=== PATIENT | male | born 1950 | race Caucasian/White ===

== ENCOUNTER 2017-08-05 12:10 | Observation (INO) ==
[2017-08-05] MEDS ORDERED: NITROGLYCERIN 2% OINT 1 INCH/GM PACK TOP STA (12:44)
[2017-08-05] MEDS ORDERED: ENOXAPARIN 100 MG/ML SYRINGE SUBCUT STA (12:44)
[2017-08-05] MEDS ORDERED: MORPHINE 2 MG/1 ML SYRINGE IV STA (12:44)
[2017-08-05] MEDS ORDERED: ASPIRIN 325 MG TABLET PO STA (12:44)
[2017-08-05] MEDS ORDERED: ONDANSETRON 4 MG/2 ML VIAL IV STA (12:44)
[2017-08-05] MEDS ORDERED: NITROGLYCERIN SL 0.4 MG TABLET SL PRN (12:44)
[2017-08-05 13:46] LABS: Basophils % 0.3 % (0.0-0.8); Eosinophils % 0.2 % (0.00-10.9); Hematocrit 42.1 VOL% (42.0-52.0); Hemoglobin 14.2 GM/DL (14.0-18.0); Immature Granulocytes % 1.2 %; Immature Granulocytes Absolute 0.12 #; Lymphocytes # 1.4 10*3/uL (1.4-4.0); Lymphocytes % 13.3 % (21.2-54.2); Mean Corpuscular HGB Conc 33.7 GM/DL (32-36); Mean Corpuscular Hemoglobin 30 PG (27-34); Mean Corpuscular Volume 88.6 FL (87-102); Mean Platelet Volume 10.5 FL (9.6-12.0); Monocytes # 0.6 10*3/uL (0.11-0.8); Monocytes % 6.2 % (1.7-12.7); Neutrophils # 8.2 10*3/uL (1.4-7.4); Neutrophils % 78.8 % (38.7-73.9); Platelet Count 295 T/CUMM (130-400); Red Blood Count 4.75 MC/CUMM (3.8-5.5); Red Cell Distribution Width 13.9 % (9.3-17.3); White Blood Count 10.4 T/CUMM (4-12)
[2017-08-05 14:01] LABS: Alanine Aminotransferase 28 U/L (16-61); Albumin 3.7 G/DL (3.4-5.0); Alkaline Phosphatase 59 U/L (45-117); Aspartate Amino Transferase 16 U/L (0-37); Bilirubin,Total < 0.39 MG/DL (0.2-1.0); Blood Urea Nitrogen 26 MG/DL (7-18); Calcium 9.4 MG/DL (8.5-10.1); Glucose 106 MG/DL (74-106); Osmolality,Calculated 281.5 MOS/KG (273-304); Sodium 139 MMOL/L (136-145); Total Protein 7.1 G/DL (6.4-8.3); Troponin I Only 0.038 NG/ML (0.00-0.045)
[2017-08-05] MEDS ORDERED: NITROGLYCERIN 2% OINT 1 INCH/GM PACK TOP ONE (14:04)
[2017-08-05] MEDS ORDERED: ENOXAPARIN 100 MG/ML SYRINGE SUBCUT ONE (14:04)
[2017-08-05] MEDS ORDERED: ONDANSETRON 4 MG/2 ML VIAL ONE (14:04)
[2017-08-05] MEDS ORDERED: MORPHINE 2 MG/1 ML SYRINGE ONE (14:05)
[2017-08-05] MEDS ORDERED: ASPIRIN 325 MG TABLET ONE (14:05)
[2017-08-05] MEDS ORDERED: guaiFENesin/DM ER 600-30 MG TABLET PO PRN (15:05)
[2017-08-05] MEDS ORDERED: diphenhydrAMINE CAP 25 MG CAPSULE PO PRN (15:05)
[2017-08-05] MEDS ORDERED: ZALEPLON 5 MG CAPSULE PO PRN (15:05)
[2017-08-05] MEDS ORDERED: POTASSIUM CHLORIDE 20 MEQ TABLET PO PRN (15:05)
[2017-08-05] MEDS ORDERED: ACETAMINOPHEN 325 MG TABLET PO PRN (15:05)
[2017-08-05] MEDS ORDERED: MORPHINE 2 MG/1 ML SYRINGE IV PRN (15:05)
[2017-08-05] MEDS ORDERED: MAGNESIUM SULF RIDER 4 GM in PREMIX 1 EACH IV PRN (15:05)
[2017-08-05] MEDS ORDERED: MAGNESIUM SULF RIDER 2 GM in PREMIX 1 EACH IV PRN ×2 (15:05→17:20)
[2017-08-05] MEDS ORDERED: SODIUM CHLORIDE 0.45% 1,000 ML IV SCH (15:30)
[2017-08-05] MEDS ORDERED: POTASSIUM CHLORIDE RIDER 10 MEQ in PREMIX 1 EACH IV PRN (17:20)
[2017-08-05] MEDS: predniSONE 10 MG TABLET PO SCH (18:20)
[2017-08-05] MEDS: LOSARTAN 25 MG TABLET PO SCH (18:20)
[2017-08-05] MEDS: CARVEDILOL 6.25 MG TABLET PO SCH (21:13)
[2017-08-05] MEDS: ATORVASTATIN 80 MG TABLET PO SCH (21:13)
[2017-08-06] MEDS: ENOXAPARIN 80 MG/0.8 ML SYRINGE SUBCUT SCH ×2 (02:11→16:51)
[2017-08-06 05:23] LABS: Risk Ratio 3.3; VLDL CHOLESTEROL 35.6 MG/DL
[2017-08-06] MEDS ORDERED: DIAZEPAM 5 MG TABLET PO ONE (07:00)
[2017-08-06] MEDS ORDERED: diphenhydrAMINE CAP 25 MG CAPSULE PO ONE (07:00)
[2017-08-06] MEDS ORDERED: SODIUM CHLORIDE 0.45% 1,000 ML IV SCH (07:00)
[2017-08-06] MEDS ORDERED: LIDOCAINE 1% 20 ML VIAL ONE (07:32)
[2017-08-06] MEDS ORDERED: HEPARIN/NACL 0.9% 2 UNITS/ML 2,000 ML IV ONE (07:32)
[2017-08-06] MEDS: CARVEDILOL 6.25 MG TABLET PO SCH ×3 (07:33→21:25)
[2017-08-06] MEDS: ISOSORBIDE MONONITRATE 60 MG TABLET PO SCH ×2 (07:33→09:41)
[2017-08-06] MEDS: LOSARTAN 25 MG TABLET PO SCH ×2 (07:33→09:40)
[2017-08-06] MEDS ORDERED: TICAGRELOR 90 MG TABLET ONE (07:53)
[2017-08-06] MEDS ORDERED: NITROGLYCERIN DRIP 50 MG/250 ML BOTTLE IV ONE (07:57)
[2017-08-06] MEDS ORDERED: MIDAZOLAM 2 MG/2 ML VIAL ONE ×2 (07:57→08:04)
[2017-08-06] MEDS ORDERED: fentaNYL 100 MCG/2 ML VIAL ONE (07:58)
[2017-08-06] MEDS ORDERED: VERAPAMIL 5 MG/2 ML VIAL ONE (07:58)
[2017-08-06] MEDS ORDERED: diphenhydrAMINE 50 MG/1 ML VIAL ONE (08:04)
[2017-08-06] MEDS ORDERED: ENOXAPARIN 60 MG/0.6 ML SYRINGE ONE (08:12)
[2017-08-06] MEDS: predniSONE 10 MG TABLET PO SCH (09:40)
[2017-08-06] MEDS: PRAVASTATIN 40 MG TABLET PO SCH (09:40)
[2017-08-06] MEDS: PANTOPRAZOLE 40 MG TABLET PO SCH (09:40)
[2017-08-06] MEDS: ALLOPURINOL 300 MG TABLET PO SCH (09:40)
[2017-08-06] MEDS: LISINOPRIL/HCTZ 20-12.5 MG TABLET PO SCH (09:41)
[2017-08-06] MEDS: ASPIRIN EC 81 MG TABLET PO SCH (09:44)
[2017-08-06] MEDS: ATORVASTATIN 80 MG TABLET PO SCH (21:25)
[2017-08-07] MEDS: ENOXAPARIN 80 MG/0.8 ML SYRINGE SUBCUT SCH ×2 (02:56→16:13)
[2017-08-07 05:53] LABS: Osmolality,Calculated 277.5 MOS/KG (273-304); Potassium 4.2 MMOL/L (3.5-5.1)
[2017-08-07 06:05] LABS: Basophils % 0.2 % (0.0-0.8); Eosinophils # 0.1 10*3/uL (0.0-0.87); Eosinophils % 0.9 % (0.00-10.9); Hematocrit 41.2 VOL% (42.0-52.0); Hemoglobin 14.3 GM/DL (14.0-18.0); Immature Granulocytes % 0.9 %; Immature Granulocytes Absolute 0.08 #; Lymphocytes % 21.5 % (21.2-54.2); Mean Corpuscular HGB Conc 34.7 GM/DL (32-36); Mean Corpuscular Hemoglobin 31 PG (27-34); Mean Corpuscular Volume 88.2 FL (87-102); Mean Platelet Volume 10.7 FL (9.6-12.0); Monocytes # 0.8 10*3/uL (0.11-0.8); Monocytes % 9.1 % (1.7-12.7); Neutrophils # 6.1 10*3/uL (1.4-7.4); Neutrophils % 67.4 % (38.7-73.9); Platelet Count 286 T/CUMM (130-400); Red Blood Count 4.67 MC/CUMM (3.8-5.5); Red Cell Distribution Width 13.9 % (9.3-17.3); White Blood Count 9.1 T/CUMM (4-12)
[2017-08-07] MEDS: predniSONE 10 MG TABLET PO SCH (08:38)
[2017-08-07] MEDS: PRAVASTATIN 40 MG TABLET PO SCH (08:38)
[2017-08-07] MEDS: LOSARTAN 25 MG TABLET PO SCH (08:38)
[2017-08-07] MEDS: PANTOPRAZOLE 40 MG TABLET PO SCH (08:38)
[2017-08-07] MEDS: LISINOPRIL/HCTZ 20-12.5 MG TABLET PO SCH (08:38)
[2017-08-07] MEDS: ISOSORBIDE MONONITRATE 60 MG TABLET PO SCH (08:38)
[2017-08-07] MEDS: CARVEDILOL 6.25 MG TABLET PO SCH ×2 (08:38→22:21)
[2017-08-07] MEDS: ALLOPURINOL 300 MG TABLET PO SCH (08:38)
[2017-08-07] MEDS: ASPIRIN EC 81 MG TABLET PO SCH (08:39)
[2017-08-07] MEDS: ATORVASTATIN 80 MG TABLET PO SCH (22:21)
[2017-08-08] MEDS: ENOXAPARIN 80 MG/0.8 ML SYRINGE SUBCUT SCH ×2 (03:01→15:37)
[2017-08-08] MEDS: ISOSORBIDE MONONITRATE 60 MG TABLET PO SCH (08:39)
[2017-08-08] MEDS: LISINOPRIL/HCTZ 20-12.5 MG TABLET PO SCH (08:39)
[2017-08-08] MEDS: ALLOPURINOL 300 MG TABLET PO SCH (08:40)
[2017-08-08] MEDS: CARVEDILOL 6.25 MG TABLET PO SCH ×2 (08:40→21:03)
[2017-08-08] MEDS: LOSARTAN 25 MG TABLET PO SCH (08:40)
[2017-08-08] MEDS: ASPIRIN EC 81 MG TABLET PO SCH (08:40)
[2017-08-08] MEDS: PANTOPRAZOLE 40 MG TABLET PO SCH (08:40)
[2017-08-08] MEDS: PRAVASTATIN 40 MG TABLET PO SCH (08:40)
[2017-08-08 15:54] LABS: Apearance,Urine Slightly Hazy (Clear); Bilirubin,Urine Negative (Negative); Blood, Urine Large mg/dL (Negative); Glucose,Urine (UA) Negative (Negative); Hyaline Casts,Urine 1 /LPF (0-3); Ketones,Urine Negative (Negative); Mucus,Urine Occasional /LPF (Occasional); Nitrite,Urine Negative (Negative); Protein,Urine Negative; RBC,Urine 138 /HPF (0-4); Squamous Epithelial Cell,Urine Occasional /HPF (0-10); Urine Color Yellow (Yellow); Urine Specific Gravity 1.014 (1.001-1.035); Urine Urobilinogen < 2.0 EU/DL (0.2-1.0); WBC,Urine 1 /HPF (0-6)
[2017-08-08] MEDS ORDERED: BISACODYL 5 MG TABLET PO PRN (18:02)
[2017-08-08] MEDS ORDERED: ONDANSETRON 4 MG/2 ML VIAL IV PRN (18:02)
[2017-08-08] MEDS: ATORVASTATIN 80 MG TABLET PO SCH (21:03)
[2017-08-09] MEDS: ENOXAPARIN 80 MG/0.8 ML SYRINGE SUBCUT SCH (02:03)
[2017-08-09 05:07] LABS: Basophils % 0.5 % (0.0-0.8); Eosinophils # 0.1 10*3/uL (0.0-0.87); Eosinophils % 1.2 % (0.00-10.9); Hematocrit 39.8 VOL% (42.0-52.0); Hemoglobin 13.7 GM/DL (14.0-18.0); Immature Granulocytes % 0.6 %; Immature Granulocytes Absolute 0.05 #; Lymphocytes # 2.4 10*3/uL (1.4-4.0); Lymphocytes % 27.7 % (21.2-54.2); Mean Corpuscular HGB Conc 34.4 GM/DL (32-36); Mean Corpuscular Hemoglobin 30 PG (27-34); Mean Corpuscular Volume 88.4 FL (87-102); Monocytes # 0.8 10*3/uL (0.11-0.8); Monocytes % 9.2 % (1.7-12.7); Neutrophils # 5.2 10*3/uL (1.4-7.4); Neutrophils % 60.8 % (38.7-73.9); Platelet Count 237 T/CUMM (130-400); Red Cell Distribution Width 13.8 % (9.3-17.3); White Blood Count 8.5 T/CUMM (4-12)
[2017-08-09 05:36] LABS: Calcium 8.9 MG/DL (8.5-10.1); Magnesium 2.1 MG/DL (1.8-2.4); Osmolality,Calculated 279.5 MOS/KG (273-304); Potassium 3.7 MMOL/L (3.5-5.1)
[2017-08-09] MEDS: ALLOPURINOL 300 MG TABLET PO SCH (09:01)
[2017-08-09] MEDS: PANTOPRAZOLE 40 MG TABLET PO SCH (09:01)
[2017-08-09] MEDS: CARVEDILOL 6.25 MG TABLET PO SCH (09:01)
[2017-08-09] MEDS: ASPIRIN EC 81 MG TABLET PO SCH (09:01)
[2017-08-09] MEDS: ISOSORBIDE MONONITRATE 60 MG TABLET PO SCH (09:01)
[2017-08-09] MEDS: LOSARTAN 25 MG TABLET PO SCH (09:01)
[2017-08-09 12:24] LABS: Apearance,Urine CLOUDY (Clear); Bilirubin,Urine Negative (Negative); Blood, Urine Large mg/dL (Negative); Glucose,Urine (UA) Negative (Negative); Ketones,Urine Negative (Negative); Mucus,Urine Occasional /LPF (Occasional); Nitrite,Urine Negative (Negative); Protein,Urine 100 MG/DL; RBC,Urine 2195 /HPF (0-4); Urine Color Amber (Yellow); Urine Specific Gravity 1.017 (1.001-1.035); WBC,Urine 8 /HPF (0-6)
[2017-08-09 16:53] VITALS: BP 94/58
== END 2017-08-09 16:57 | disposition home or self-care (01) ==
LOC: N.ED 12:10 → N.EDINP 12:10 → N.TELEN 17:03
PROVIDERS: ADMIT Internal Medicine Cardiovascular Disease; ATTEND Internal Medicine Cardiovascular Disease

== ENCOUNTER 2017-08-09 07:40 | Inpatient (IN) ==
[2017-08-18 10:52] LABS: Basophils % 0.4 % (0.0-0.8); Eosinophils # 0.2 10*3/uL (0.0-0.87); Eosinophils % 1.6 % (0.00-10.9); Hematocrit 40.3 VOL% (42.0-52.0); Hemoglobin 13.3 GM/DL (14.0-18.0); Immature Granulocytes % 0.4 %; Immature Granulocytes Absolute 0.04 #; Lymphocytes # 1.5 10*3/uL (1.4-4.0); Lymphocytes % 16.8 % (21.2-54.2); Mean Corpuscular Hemoglobin 30 PG (27-34); Mean Corpuscular Volume 91.2 FL (87-102); Mean Platelet Volume 10.5 FL (9.6-12.0); Monocytes % 10.4 % (1.7-12.7); Neutrophils # 6.5 10*3/uL (1.4-7.4); Neutrophils % 70.4 % (38.7-73.9); Platelet Count 305 T/CUMM (130-400); Red Blood Count 4.42 MC/CUMM (3.8-5.5); Red Cell Distribution Width 13.3 % (9.3-17.3); White Blood Count 9.2 T/CUMM (4-12)
[2017-08-18 11:03] LABS: PT Patient Result 10.8 SECS; Partial Thromboplastin Time 29.8 SECS (0-40)
[2017-08-18 11:25] LABS: Calcium 9.5 MG/DL (8.5-10.1); Magnesium 2.6 MG/DL (1.8-2.4); Osmolality,Calculated 286.7 MOS/KG (273-304)
[2017-08-23] MEDS ORDERED: PAPAVERINE 60 MG/2 ML VIAL ONE (05:30)
[2017-08-23] MEDS ORDERED: TISSUE ADHESIVE 1 EACH APPLICATOR TOP ONE (05:30)
[2017-08-23] MEDS ORDERED: VANCOMYCIN 1,000 MG VIAL ONE (05:31)
[2017-08-23] MEDS ORDERED: CEFUROXIME 1,500 MG VIAL ONE (05:57)
[2017-08-23] MEDS ORDERED: DIAZEPAM 5 MG TABLET ONE (05:59)
[2017-08-23] MEDS ORDERED: FAMOTIDINE 20 MG TABLET ONE (05:59)
[2017-08-23] MEDS ORDERED: SODIUM CHLORIDE 0.9% 1,000 ML IV PRN (05:59)
[2017-08-23] MEDS ORDERED: CEFUROXIME INJ 1,500 MG in SYRINGE 1 EACH IV ONE (06:00)
[2017-08-23] MEDS ORDERED: DIAZEPAM 5 MG TABLET PO STA (06:00)
[2017-08-23] MEDS ORDERED: FAMOTIDINE 20 MG TABLET PO STA (06:01)
[2017-08-23] MEDS ORDERED: FAMOTIDINE 20 MG/2 ML VIAL IV ONE (06:03)
[2017-08-23] MEDS ORDERED: TRANEXAMIC ACID 1,000 MG/10 ML VIAL IV ONE (06:10)
[2017-08-23] MEDS ORDERED: MINERAL OIL/PETROLATUM OPH OINT 3.5 GM TUBE ONE ×2 (06:10→11:24)
[2017-08-23] MEDS: LACTATED RINGERS 1,000 ML IV SCH (06:20)
[2017-08-23 06:21] LABS: Apearance,Urine Slightly Hazy (Clear); Bacteria,Urine Occasional /HPF (Few); Bilirubin,Urine Negative (Negative); Blood, Urine Large mg/dL (Negative); Glucose,Urine (UA) Negative (Negative); Ketones,Urine Negative (Negative); Mucus,Urine Few /LPF (Occasional); Nitrite,Urine Negative (Negative); Protein,Urine Negative; RBC,Urine 325 /HPF (0-4); Squamous Epithelial Cell,Urine Occasional /HPF (0-10); Urine Color Yellow (Yellow); Urine Specific Gravity 1.018 (1.001-1.035); Urine Urobilinogen < 2.0 EU/DL (0.2-1.0); WBC,Urine 3 /HPF (0-6)
[2017-08-23] MEDS ORDERED: NITROPRUSSIDE 50 MG/2 ML VIAL ONE (07:40)
[2017-08-23] MEDS ORDERED: ALBUMIN 5% 12.5 GM/250 ML VIAL IV ONE (07:41)
[2017-08-23] MEDS ORDERED: EPINEPHrine 1 MG/10 ML SYRINGE ONE ×2 (07:41→11:23)
[2017-08-23] MEDS ORDERED: LIDOCAINE 100 MG/5 ML SYRINGE ONE (07:41)
[2017-08-23 08:07] LABS: ABG Base Excess -0.2 MMOL/L (-2.5-2.5); ABG HCO3 24.3 MMOL/L (20-26); ABG PCO2 37.6 MM HG (35-48); ABG PH 7.415 (7.35-7.45); ABG TCO2 21.5 MMOL/L (23-27); Glucose Heart Surgery 107 MG/DL (74-106); Hematocrit Heart Surgery 34.6 PERCENT (42-52); Hemoglobin Heart Surgery 11.2 G/DL (14.0-18.0); Ionized Calcium Arterial 1.23 MMOL/L (1.21-1.46); PCO2 Patient Temp Arterial 37.6 MMHG; PH Patient Temp Arterial 7.415; Patient Temperature 37 CELCIUS; Potassium Heart/CVR 4.2 MMOL/L (3.5-5.1); Sodium Heart/CVR 137 MMOL/L (135-145)
[2017-08-23 08:30] LABS: Apearance,Urine Slightly Hazy (Clear); Bacteria,Urine Occasional /HPF (Few); Bilirubin,Urine Negative (Negative); Blood, Urine Large mg/dL (Negative); Glucose,Urine (UA) Negative (Negative); Ketones,Urine Negative (Negative); Mucus,Urine Occasional /LPF (Occasional); Nitrite,Urine Negative (Negative); Protein,Urine Negative; RBC,Urine 88 /HPF (0-4); Squamous Epithelial Cell,Urine Occasional /HPF (0-10); Urine Color Yellow (Yellow); Urine Specific Gravity 1.016 (1.001-1.035); Urine Urobilinogen < 2.0 EU/DL (0.2-1.0); WBC,Urine <1 /HPF (0-6)
[2017-08-23 09:16] LABS: Hematocrit Heart Surgery 24.9 PERCENT (42-52); PCO2 Patient Temp Venous 33.9 MM HG; PH Patient Temp Venous 7.479; PO2 Patient Temp Venous 37.9 MM HG; Potassium Heart/CVR 4.8 MMOL/L (3.5-5.1); VBG Base Excess 1.9 MEQ/L (0-4); VBG Oxygen Saturation 83.1 %; VBG PCO2 37.4 MMHG (41-51); VBG PH 7.449; VBG PO2 43.5 MMHG (17-40)
[2017-08-23 09:45] LABS: Hematocrit Heart Surgery 27.2 PERCENT (42-52); Hemoglobin Heart Surgery 8.8 G/DL (14.0-18.0); PCO2 Patient Temp Venous 31.2 MM HG; PH Patient Temp Venous 7.501; Potassium Heart/CVR 4.3 MMOL/L (3.5-5.1); VBG Base Excess 1.6 MEQ/L (0-4); VBG HCO3 25.6 MEQ/L (24-28); VBG Oxygen Saturation 78.9 %; VBG PCO2 32.7 MMHG (41-51); VBG PH 7.486; VBG PO2 38.6 MMHG (17-40)
[2017-08-23 10:21] LABS: ABG Base Excess 0.7 MMOL/L (-2.5-2.5); ABG Oxygen Saturation 96.7 % (95-100); ABG PCO2 32.9 MM HG (35-48); ABG PO2 75.7 MM HG (80-95); ABG TCO2 21.9 MMOL/L (23-27); Glucose Heart Surgery 200 MG/DL (74-106); Hematocrit Heart Surgery 28.7 PERCENT (42-52); Hemoglobin Heart Surgery 9.2 G/DL (14.0-18.0); Ionized Calcium Arterial 1.07 MMOL/L (1.21-1.46); PCO2 Patient Temp Arterial 32.9 MMHG; PO2 Patient Temp Arterial 75.7 MM HG; Patient Temperature 37 CELCIUS; Potassium Heart/CVR 3.8 MMOL/L (3.5-5.1); Sodium Heart/CVR 135 MMOL/L (135-145)
[2017-08-23] MEDS ORDERED: DEXTROSE 5% KCL 20 MEQ 20 MEQ/1,000 ML BAG IV ONE (10:23)
[2017-08-23] MEDS ORDERED: MAGNESIUM SULFATE 1 GM/2 ML VIAL ONE (10:23)
[2017-08-23] MEDS ORDERED: THROMBIN TOPICAL (RECOMBINANT) 5,000 UNIT VIAL TOP ONE (10:23)
[2017-08-23] MEDS ORDERED: PROTAMINE SULFATE 250 MG/25 ML VIAL IV ONE (10:23)
[2017-08-23] MEDS ORDERED: ALBUMIN 25% 25 GM/100 ML VIAL IV ONE (10:23)
[2017-08-23] MEDS ORDERED: SODIUM BICARBONATE 50 MEQ/50 ML SYRINGE IV ONE (10:23)
[2017-08-23] MEDS ORDERED: PROTAMINE SULFATE 50 MG/5 ML VIAL IV ONE (10:24)
[2017-08-23] MEDS ORDERED: FUROSEMIDE 20 MG/2 ML VIAL ONE (10:24)
[2017-08-23] MEDS ORDERED: MANNITOL 12.5 GM/50 ML VIAL IV ONE (10:24)
[2017-08-23] MEDS ORDERED: HEPARIN 10,000 UNIT/10 ML VIAL ONE (10:24)
[2017-08-23] MEDS ORDERED: methylPREDNISolone SOD SUC 1,000 MG/8 ML VIAL ONE (10:24)
[2017-08-23] MEDS ORDERED: PHENYLEPHRINE DRIP 40 MG/250 ML PREMIX IV ONE (10:50)
[2017-08-23] MEDS ORDERED: EPINEPHrine 1 MG/ML VIAL ONE ×2 (10:51→11:25)
[2017-08-23] MEDS ORDERED: SODIUM CHLORIDE 0.9% 250 ML IV PRN (11:04)
[2017-08-23] MEDS ORDERED: ACETAMINOPHEN 650 MG SUPP RECTAL PRN (11:04)
[2017-08-23] MEDS ORDERED: DEXTROSE 50% 25 GM/50 ML VIAL IV PRN ×2 (11:04)
[2017-08-23] MEDS ORDERED: MAGNESIUM SULF RIDER 2 GM in PREMIX 1 EACH IV PRN (11:04)
[2017-08-23] MEDS ORDERED: MAGNESIUM SULF RIDER 4 GM in PREMIX 1 EACH IV PRN (11:04)
[2017-08-23] MEDS ORDERED: CALCIUM CHLORIDE 1,000 MG/10 ML SYRINGE IV PRN (11:04)
[2017-08-23] MEDS ORDERED: POTASSIUM CHLORIDE RIDER 20 MEQ in PREMIX 1 EACH IV PRN (11:04)
[2017-08-23] MEDS ORDERED: ALBUMIN 5% 12.5 GM in PREMIX 1 EACH IV PRN (11:04)
[2017-08-23] MEDS ORDERED: MIDAZOLAM 2 MG/2 ML VIAL IV PRN (11:04)
[2017-08-23] MEDS ORDERED: CHLORHEXIDINE 4% SOLN 118 ML BOTTLE TOP PRN (11:04)
[2017-08-23] MEDS ORDERED: POTASSIUM CHLORIDE RIDER 10 MEQ in PREMIX 1 EACH IV PRN (11:04)
[2017-08-23] MEDS ORDERED: INSULIN REGULAR 100 UNIT/ML IV PRN (11:04)
[2017-08-23] MEDS ORDERED: SEVOFLURANE 1 UNIT/15 MINUTE INH ONE (11:23)
[2017-08-23] MEDS ORDERED: SUFentanil 250 MCG/5 ML AMP ONE (11:23)
[2017-08-23] MEDS ORDERED: CALCIUM CHLORIDE 1,000 MG/10 ML VIAL IV ONE (11:23)
[2017-08-23] MEDS ORDERED: SODIUM CHLORIDE 0.9% 1,000 ML IV ONE (11:24)
[2017-08-23] MEDS ORDERED: ETOMIDATE 40 MG/20 ML VIAL IV ONE (11:24)
[2017-08-23] MEDS ORDERED: LACTATED RINGERS 3,000 ML IV ONE (11:24)
[2017-08-23] MEDS ORDERED: MIDAZOLAM 10 MG/2 ML VIAL ONE ×2 (11:24)
[2017-08-23] MEDS ORDERED: VECURONIUM 10 MG VIAL IV ONE (11:24)
[2017-08-23] MEDS ORDERED: SODIUM CHLORIDE 0.9% 500 ML IV ONE (11:24)
[2017-08-23] MEDS ORDERED: SODIUM CHLORIDE 0.9% 100 ML IV ONE (11:24)
[2017-08-23] MEDS ORDERED: HEPARIN/NACL 0.9% 2 UNITS/ML 1,000 ML IV ONE (11:27)
[2017-08-23] MEDS ORDERED: INSULIN REGULAR DRIP 100 ML IV SCH (11:30)
[2017-08-23] MEDS ORDERED: SODIUM CHLORIDE 0.45% 1,000 ML IV SCH (11:30)
[2017-08-23 12:12] LABS: ABG Base Excess 1.3 MMOL/L (-2.5-2.5); ABG HCO3 25.6 MMOL/L (20-26); ABG Oxygen Saturation 98.7 % (95-100); ABG PCO2 37.9 MM HG (35-48); ABG PH 7.434 (7.35-7.45); ABG TCO2 22.9 MMOL/L (23-27); Basophils % 0.3 % (0.0-0.8); Eosinophils # 0.1 10*3/uL (0.0-0.87); Eosinophils % 1.2 % (0.00-10.9); Glucose Heart Surgery 169 MG/DL (74-106); Hematocrit 31.8 VOL% (42.0-52.0); Hemoglobin 10.7 GM/DL (14.0-18.0); Hemoglobin Heart Surgery 10.3 G/DL (14.0-18.0); Immature Granulocytes % 0.7 %; Immature Granulocytes Absolute 0.05 #; Lymphocytes # 0.8 10*3/uL (1.4-4.0); Lymphocytes % 11.4 % (21.2-54.2); Mean Corpuscular HGB Conc 33.6 GM/DL (32-36); Mean Corpuscular Hemoglobin 30 PG (27-34); Mean Corpuscular Volume 89.3 FL (87-102); Mean Platelet Volume 10.2 FL (9.6-12.0); Monocytes # 0.3 10*3/uL (0.11-0.8); Monocytes % 4.5 % (1.7-12.7); Neutrophils # 5.6 10*3/uL (1.4-7.4); Neutrophils % 81.9 % (38.7-73.9); Platelet Count 233 T/CUMM (130-400); Potassium Heart/CVR 3.5 MMOL/L (3.5-5.1); Red Blood Count 3.56 MC/CUMM (3.8-5.5); Red Cell Distribution Width 12.9 % (9.3-17.3); White Blood Count 6.8 T/CUMM (4-12)
[2017-08-23] MEDS: SODIUM CHLORIDE 0.45% 1,000 ML IV SCH (12:23)
[2017-08-23 12:34] LABS: INR 1.2; PT Patient Result 12.2 SECS; Partial Thromboplastin Time 34.1 SECS (0-40)
[2017-08-23 12:35] LABS: Hematocrit Heart Surgery 33.7 PERCENT (42-52); Hemoglobin Heart Surgery 10.9 G/DL (14.0-18.0); PCO2 Patient Temp Venous 45.6 MM HG; PH Patient Temp Venous 7.401; PO2 Patient Temp Venous 26.4 MM HG; Potassium Heart/CVR 3.6 MMOL/L (3.5-5.1); VBG HCO3 26.1 MEQ/L (24-28); VBG Oxygen Saturation 47.7 %; VBG PCO2 45.6 MMHG (41-51); VBG PH 7.401; VBG PO2 26.4 MMHG (17-40)
[2017-08-23 12:36] LABS: Blood Urea Nitrogen 20 MG/DL (7-18); Glucose 171 MG/DL (74-106); Magnesium 1.9 MG/DL (1.8-2.4); Osmolality,Calculated 283.5 MOS/KG (273-304); Potassium 3.7 MMOL/L (3.5-5.1); Sodium 139 MMOL/L (136-145)
[2017-08-23 12:46] LABS: Lactic Acid 2.8 MMOL/L (0.4-2.0)
[2017-08-23] MEDS: MORPHINE 10 MG/1 ML VIAL IV PRN ×2 (13:18→19:33)
[2017-08-23 15:03] LABS: ABG Base Excess 1.8 MMOL/L (-2.5-2.5); ABG HCO3 26.1 MMOL/L (20-26); ABG Oxygen Saturation 98.2 % (95-100); ABG PCO2 43.2 MM HG (35-48); ABG PH 7.402 (7.35-7.45); ABG TCO2 24.2 MMOL/L (23-27); Glucose Heart Surgery 174 MG/DL (74-106); Hematocrit Heart Surgery 33.4 PERCENT (42-52); Hemoglobin Heart Surgery 10.8 G/DL (14.0-18.0); Potassium Heart/CVR 3.9 MMOL/L (3.5-5.1)
[2017-08-23 15:19] LABS: Hematocrit Heart Surgery 33.6 PERCENT (42-52); Hemoglobin Heart Surgery 10.9 G/DL (14.0-18.0); PCO2 Patient Temp Venous 46.6 MM HG; PH Patient Temp Venous 7.374; PO2 Patient Temp Venous 37.6 MM HG; Potassium Heart/CVR 3.9 MMOL/L (3.5-5.1); VBG Base Excess 1.5 MEQ/L (0-4); VBG HCO3 25.2 MEQ/L (24-28); VBG Oxygen Saturation 70.1 %; VBG PCO2 46.6 MMHG (41-51); VBG PH 7.374; VBG PO2 37.6 MMHG (17-40)
[2017-08-23] MEDS: MORPHINE 2 MG/1 ML SYRINGE IV PRN ×3 (16:24→23:39)
[2017-08-23] MEDS: CEFUROXIME INJ 1,500 MG in SYRINGE 1 EACH IV SCH (19:59)
[2017-08-23] MEDS ORDERED: KETOROLAC 30 MG/1 ML VIAL IV ONE (21:06)
[2017-08-23] MEDS: CHLORHEXIDINE 0.12% ORAL RINSE 60 ML BOTTLE SWISH/SPIT SCH (21:28)
[2017-08-24] MEDS: KETOROLAC 15 MG/1 ML VIAL IV PRN ×3 (04:22→21:44)
[2017-08-24] MEDS: SODIUM CHLORIDE 0.45% 1,000 ML IV SCH (04:23)
[2017-08-24 04:49] LABS: Basophils % 0.1 % (0.0-0.8); Hematocrit 29.1 VOL% (42.0-52.0); Hemoglobin 10.3 GM/DL (14.0-18.0); Immature Granulocytes % 0.7 %; Immature Granulocytes Absolute 0.08 #; Lymphocytes # 0.7 10*3/uL (1.4-4.0); Lymphocytes % 6.3 % (21.2-54.2); Mean Corpuscular HGB Conc 35.4 GM/DL (32-36); Mean Corpuscular Hemoglobin 31 PG (27-34); Mean Corpuscular Volume 86.9 FL (87-102); Mean Platelet Volume 10.3 FL (9.6-12.0); Monocytes # 0.5 10*3/uL (0.11-0.8); Monocytes % 4.2 % (1.7-12.7); Neutrophils # 10.4 10*3/uL (1.4-7.4); Neutrophils % 88.7 % (38.7-73.9); Platelet Count 238 T/CUMM (130-400); Red Blood Count 3.35 MC/CUMM (3.8-5.5); White Blood Count 11.8 T/CUMM (4-12)
[2017-08-24 05:14] LABS: Osmolality,Calculated 283.5 MOS/KG (273-304); Potassium 4.3 MMOL/L (3.5-5.1)
[2017-08-24] MEDS: MORPHINE 2 MG/1 ML SYRINGE IV PRN ×4 (05:16→15:50)
[2017-08-24] MEDS ORDERED: EPINEPHrine 1 MG/ML VIAL ONE (07:08)
[2017-08-24] MEDS ORDERED: CALCIUM CHLORIDE 1,000 MG/10 ML VIAL IV ONE (07:08)
[2017-08-24] MEDS ORDERED: MINERAL OIL/PETROLATUM OPH OINT 3.5 GM TUBE ONE (07:08)
[2017-08-24] MEDS ORDERED: LIDOCAINE 2% 5 ML VIAL ONE (07:08)
[2017-08-24] MEDS ORDERED: VECURONIUM 10 MG VIAL IV ONE (07:08)
[2017-08-24] MEDS ORDERED: ETOMIDATE 20 MG/10 ML VIAL IV ONE (07:08)
[2017-08-24] MEDS: CEFUROXIME INJ 1,500 MG in SYRINGE 1 EACH IV SCH ×2 (07:17→18:04)
[2017-08-24] MEDS: INSULIN REGULAR 100 UNIT/ML SUBCUT SCH ×4 (08:00→21:45)
[2017-08-24] MEDS: MORPHINE 10 MG/1 ML VIAL IV PRN (08:08)
[2017-08-24] MEDS ORDERED: METOPROLOL TARTRATE 5 MG/5 ML VIAL IV ONE ×2 (08:23→08:27)
[2017-08-24] MEDS ORDERED: FUROSEMIDE 40 MG/4 ML VIAL IV ONE (08:29)
[2017-08-24] MEDS ORDERED: METOPROLOL TARTRATE 25 MG TABLET PO SCH (09:00)
[2017-08-24] MEDS: ASPIRIN EC 325 MG TABLET PO SCH (09:50)
[2017-08-24] MEDS: CLOPIDOGREL 75 MG TABLET PO SCH (09:50)
[2017-08-24] MEDS: FUROSEMIDE 40 MG TABLET PO SCH (09:50)
[2017-08-24] MEDS: CHLORHEXIDINE 0.12% ORAL RINSE 60 ML BOTTLE SWISH/SPIT SCH ×2 (10:03→21:45)
[2017-08-24] MEDS: CARVEDILOL 6.25 MG TABLET PO SCH ×2 (10:40→21:45)
[2017-08-24] MEDS: LOSARTAN 25 MG TABLET PO SCH (10:40)
[2017-08-24] MEDS: ALLOPURINOL 300 MG TABLET PO SCH (10:40)
[2017-08-24] MEDS: LACTATED RINGERS 1,000 ML IV SCH (12:17)
[2017-08-24] MEDS ORDERED: BISACODYL 5 MG TABLET PO PRN (20:28)
[2017-08-24] MEDS: ATORVASTATIN 40 MG TABLET PO SCH (21:45)
[2017-08-25] MEDS: INSULIN REGULAR 100 UNIT/ML SUBCUT SCH ×7 (00:34→23:48)
[2017-08-25 04:57] LABS: Basophils % 0.1 % (0.0-0.8); Hematocrit 29.5 VOL% (42.0-52.0); Hemoglobin 10.1 GM/DL (14.0-18.0); Immature Granulocytes % 1.1 %; Immature Granulocytes Absolute 0.14 #; Lymphocytes # 0.6 10*3/uL (1.4-4.0); Lymphocytes % 4.8 % (21.2-54.2); Mean Corpuscular HGB Conc 34.2 GM/DL (32-36); Mean Corpuscular Hemoglobin 30 PG (27-34); Mean Corpuscular Volume 88.1 FL (87-102); Mean Platelet Volume 10.5 FL (9.6-12.0); Monocytes # 0.6 10*3/uL (0.11-0.8); Monocytes % 4.8 % (1.7-12.7); Neutrophils # 11.5 10*3/uL (1.4-7.4); Neutrophils % 89.2 % (38.7-73.9); Platelet Count 242 T/CUMM (130-400); Red Blood Count 3.35 MC/CUMM (3.8-5.5); Red Cell Distribution Width 13.2 % (9.3-17.3); White Blood Count 12.9 T/CUMM (4-12)
[2017-08-25] MEDS: LACTATED RINGERS 1,000 ML IV SCH (05:11)
[2017-08-25] MEDS: KETOROLAC 15 MG/1 ML VIAL IV PRN ×2 (05:17→21:41)
[2017-08-25 05:33] LABS: Hypochromasia 1+; Microcytosis Slight
[2017-08-25 05:34] LABS: Platelet Estimate Normal
[2017-08-25] MEDS: ALLOPURINOL 300 MG TABLET PO SCH (09:30)
[2017-08-25] MEDS: CARVEDILOL 6.25 MG TABLET PO SCH ×2 (09:30→20:38)
[2017-08-25] MEDS: CLOPIDOGREL 75 MG TABLET PO SCH (09:30)
[2017-08-25] MEDS: ASPIRIN EC 325 MG TABLET PO SCH (09:30)
[2017-08-25] MEDS: LOSARTAN 25 MG TABLET PO SCH (09:31)
[2017-08-25] MEDS: FUROSEMIDE 40 MG TABLET PO SCH (09:31)
[2017-08-25] MEDS: CHLORHEXIDINE 0.12% ORAL RINSE 60 ML BOTTLE SWISH/SPIT SCH ×2 (09:31→20:38)
[2017-08-25] MEDS: MORPHINE 2 MG/1 ML SYRINGE IV PRN (09:42)
[2017-08-25] MEDS ORDERED: METOPROLOL TARTRATE 5 MG/5 ML VIAL IV ONE ×3 (13:20→13:48)
[2017-08-25] MEDS ORDERED: AMIODARONE INJ 450 MG in DEXTROSE 5% 241 ML IV SCH (14:00)
[2017-08-25] MEDS ORDERED: AMIODARONE INJ 150 MG in DEXTROSE 5% 100 ML IV ONE ×2 (19:49→21:03)
[2017-08-25] MEDS ORDERED: ALBUMIN 5% 25 GM in PREMIX 1 EACH IV ONE (20:00)
[2017-08-25] MEDS: ATORVASTATIN 40 MG TABLET PO SCH (20:35)
[2017-08-26] MEDS: INSULIN REGULAR 100 UNIT/ML SUBCUT SCH ×5 (05:54→21:09)
[2017-08-26] MEDS: AMIODARONE 200 MG TABLET PO SCH ×3 (06:23→21:35)
[2017-08-26 06:25] LABS: Hematocrit 28.1 VOL% (42.0-52.0); Hemoglobin 9.3 GM/DL (14.0-18.0); Immature Granulocytes % 0.4 %; Immature Granulocytes Absolute 0.05 #; Lymphocytes # 1.1 10*3/uL (1.4-4.0); Lymphocytes % 10.2 % (21.2-54.2); Mean Corpuscular HGB Conc 33.1 GM/DL (32-36); Mean Corpuscular Hemoglobin 30 PG (27-34); Mean Corpuscular Volume 90.4 FL (87-102); Mean Platelet Volume 10.4 FL (9.6-12.0); Monocytes % 8.9 % (1.7-12.7); Neutrophils % 80.5 % (38.7-73.9); Platelet Count 227 T/CUMM (130-400); Red Blood Count 3.11 MC/CUMM (3.8-5.5); Red Cell Distribution Width 13.3 % (9.3-17.3); White Blood Count 11.1 T/CUMM (4-12)
[2017-08-26] MEDS: ALLOPURINOL 300 MG TABLET PO SCH (10:11)
[2017-08-26] MEDS: FUROSEMIDE 40 MG TABLET PO SCH (10:11)
[2017-08-26] MEDS: ASPIRIN EC 325 MG TABLET PO SCH (10:11)
[2017-08-26] MEDS: CLOPIDOGREL 75 MG TABLET PO SCH (10:12)
[2017-08-26] MEDS: CARVEDILOL 6.25 MG TABLET PO SCH ×2 (10:13→21:35)
[2017-08-26] MEDS: LOSARTAN 25 MG TABLET PO SCH (10:14)
[2017-08-26] MEDS: CHLORHEXIDINE 0.12% ORAL RINSE 60 ML BOTTLE SWISH/SPIT SCH ×2 (10:15→21:35)
[2017-08-26] MEDS: LACTATED RINGERS 1,000 ML IV SCH (21:09)
[2017-08-26] MEDS: ATORVASTATIN 40 MG TABLET PO SCH (21:35)
[2017-08-26] MEDS: KETOROLAC 15 MG/1 ML VIAL IV PRN (21:35)
[2017-08-27] MEDS: INSULIN REGULAR 100 UNIT/ML SUBCUT SCH ×6 (00:03→20:39)
[2017-08-27] MEDS: ASPIRIN EC 325 MG TABLET PO SCH (09:28)
[2017-08-27] MEDS: CLOPIDOGREL 75 MG TABLET PO SCH (09:28)
[2017-08-27] MEDS: FUROSEMIDE 40 MG TABLET PO SCH (09:29)
[2017-08-27] MEDS: LOSARTAN 25 MG TABLET PO SCH (09:29)
[2017-08-27] MEDS: AMIODARONE 200 MG TABLET PO SCH ×2 (09:29→20:39)
[2017-08-27] MEDS: ALLOPURINOL 300 MG TABLET PO SCH (09:30)
[2017-08-27] MEDS: CHLORHEXIDINE 0.12% ORAL RINSE 60 ML BOTTLE SWISH/SPIT SCH ×2 (09:31→20:39)
[2017-08-27] MEDS: CARVEDILOL 6.25 MG TABLET PO SCH ×2 (09:31→20:39)
[2017-08-27] MEDS: ONDANSETRON 4 MG/2 ML VIAL IV PRN (09:32)
[2017-08-27] MEDS: LACTATED RINGERS 1,000 ML IV SCH (15:22)
[2017-08-27] MEDS: ATORVASTATIN 40 MG TABLET PO SCH (20:39)
[2017-08-28] MEDS: INSULIN REGULAR 100 UNIT/ML SUBCUT SCH ×3 (01:37→07:46)
[2017-08-28] MEDS: LACTATED RINGERS 1,000 ML IV SCH (05:18)
[2017-08-28] MEDS: KETOROLAC 15 MG/1 ML VIAL IV PRN (05:19)
[2017-08-28] MEDS: ONDANSETRON 4 MG/2 ML VIAL IV PRN (08:01)
[2017-08-28] MEDS: CLOPIDOGREL 75 MG TABLET PO SCH (08:02)
[2017-08-28] MEDS: CARVEDILOL 6.25 MG TABLET PO SCH (08:02)
[2017-08-28] MEDS: ALLOPURINOL 300 MG TABLET PO SCH (08:02)
[2017-08-28] MEDS: AMIODARONE 200 MG TABLET PO SCH (08:02)
[2017-08-28] MEDS: LOSARTAN 25 MG TABLET PO SCH (08:03)
[2017-08-28 08:04] VITALS: BP 99/64
[2017-08-28] MEDS: FUROSEMIDE 40 MG TABLET PO SCH (08:04)
[2017-08-28] MEDS: ASPIRIN EC 325 MG TABLET PO SCH (08:04)
[2017-08-28] MEDS: CHLORHEXIDINE 0.12% ORAL RINSE 60 ML BOTTLE SWISH/SPIT SCH (08:05)
== END 2017-08-28 10:51 | disposition home health service (06) | DRG 236 ==
LOC: N.SDSINP 08-23 05:40 → N.CVR 08-23 07:59 → N.TELES 08-24 11:22
PROVIDERS: ADMIT Thoracic Surgery (Cardiothoracic Vascular Surgery); ATTEND Thoracic Surgery (Cardiothoracic Vascular Surgery)

== ENCOUNTER 2018-05-19 19:49 | Inpatient (IN) ==
[2018-05-19] MEDS ORDERED: ONDANSETRON 4 MG/2 ML VIAL IV PRN (22:33)
[2018-05-19] MEDS ORDERED: AMIODARONE INJ 450 MG in DEXTROSE 5% 241 ML IV SCH (22:33)
[2018-05-19] MEDS ORDERED: PANTOPRAZOLE 20 MG TABLET PO ONE (23:30)
[2018-05-19] MEDS ORDERED: ALUMINUM/MAGNES/SIMETH MAX STR 30 ML UDCUP PO PRN (23:52)
[2018-05-20 00:12] LABS: CKMB % 13.8 %
[2018-05-20 00:22] LABS: Troponin I 9.95 NG/ML (0.00-0.045)
[2018-05-20] MEDS: CARVEDILOL 12.5 MG TABLET PO SCH ×3 (00:24→21:15)
[2018-05-20] MEDS: AMIODARONE 200 MG TABLET PO SCH ×3 (00:31→21:15)
[2018-05-20] MEDS: ENOXAPARIN 40 MG/0.4 ML SYRINGE SUBCUT SCH ×2 (00:32→21:16)
[2018-05-20 02:47] LABS: Basophils % 0.2 % (0.0-0.8); Eosinophils % 0.4 % (0.00-10.9); Hematocrit 38.7 VOL% (42.0-52.0); Hemoglobin 11.9 GM/DL (14.0-18.0); Immature Granulocytes % 0.4 %; Immature Granulocytes Absolute 0.04 #; Lymphocytes # 1.5 10*3/uL (1.4-4.0); Lymphocytes % 16.3 % (21.2-54.2); Mean Corpuscular HGB Conc 30.7 GM/DL (32-36); Mean Corpuscular Hemoglobin 26 PG (27-34); Mean Corpuscular Volume 83.6 FL (87-102); Mean Platelet Volume 10.6 FL (9.6-12.0); Monocytes # 0.7 10*3/uL (0.11-0.8); Neutrophils # 6.7 10*3/uL (1.4-7.4); Neutrophils % 74.7 % (38.7-73.9); Platelet Count 235 T/CUMM (130-400); Red Blood Count 4.63 MC/CUMM (3.8-5.5); Red Cell Distribution Width 17.9 % (9.3-17.3)
[2018-05-20 03:27] LABS: Bilirubin,Total 0.7 MG/DL (0.2-1.0); Calcium 8.6 MG/DL (8.5-10.1); Osmolality,Calculated 292.8 MOS/KG (273-304); Potassium 3.7 MMOL/L (3.5-5.1)
[2018-05-20] MEDS ORDERED: ALUM/MAG/SIMETH/LIDO VISC 1:1 30 ML BOTTLE PO PRN (07:04)
[2018-05-20] MEDS: ATORVASTATIN 40 MG TABLET PO SCH (08:40)
[2018-05-20] MEDS: PANTOPRAZOLE 20 MG TABLET PO SCH (08:40)
[2018-05-20] MEDS: ASPIRIN EC 81 MG TABLET PO SCH (08:40)
[2018-05-20] MEDS: ALLOPURINOL 300 MG TABLET PO SCH (08:41)
[2018-05-20] MEDS: LOSARTAN 25 MG TABLET PO SCH (08:41)
[2018-05-20] MEDS ORDERED: AMIODARONE 200 MG TABLET PO SCH (09:00)
[2018-05-20] MEDS ORDERED: PANTOPRAZOLE 20 MG TABLET PO SCH (09:00)
[2018-05-21] MEDS: ATORVASTATIN 40 MG TABLET PO SCH (08:06)
[2018-05-21] MEDS: AMIODARONE 200 MG TABLET PO SCH ×2 (08:06→20:41)
[2018-05-21] MEDS: ALLOPURINOL 300 MG TABLET PO SCH (08:06)
[2018-05-21] MEDS: LOSARTAN 25 MG TABLET PO SCH (08:06)
[2018-05-21] MEDS: ASPIRIN EC 81 MG TABLET PO SCH (08:07)
[2018-05-21] MEDS: PANTOPRAZOLE 20 MG TABLET PO SCH (08:07)
[2018-05-21] MEDS: CARVEDILOL 12.5 MG TABLET PO SCH ×2 (08:07→20:41)
[2018-05-21] MEDS: ENOXAPARIN 100 MG/ML SYRINGE SUBCUT SCH (15:56)
[2018-05-21] MEDS ORDERED: SODIUM CHLORIDE 0.9% 1,000 ML IV SCH (22:00)
[2018-05-22] MEDS: ENOXAPARIN 100 MG/ML SYRINGE SUBCUT SCH (03:23)
[2018-05-22 03:46] LABS: Albumin 2.9 G/DL (3.4-5.0); Bilirubin,Total 0.9 MG/DL (0.2-1.0); Calcium 8.7 MG/DL (8.5-10.1); Osmolality,Calculated 284.1 MOS/KG (273-304); Potassium 3.7 MMOL/L (3.5-5.1)
[2018-05-22] MEDS ORDERED: DIAZEPAM 5 MG TABLET PO ONE (07:13)
[2018-05-22] MEDS ORDERED: diphenhydrAMINE CAP 25 MG CAPSULE PO ONE (07:13)
[2018-05-22] MEDS ORDERED: TICAGRELOR 90 MG TABLET PO ONE (07:16)
[2018-05-22] MEDS ORDERED: HEPARIN/NACL 0.9% 2 UNITS/ML 1,000 ML IV ONE (07:26)
[2018-05-22] MEDS ORDERED: LIDOCAINE 1% 20 ML VIAL ONE (07:26)
[2018-05-22] MEDS ORDERED: fentaNYL 100 MCG/2 ML VIAL ONE (07:27)
[2018-05-22] MEDS ORDERED: MIDAZOLAM 2 MG/2 ML VIAL ONE ×2 (07:27→07:54)
[2018-05-22] MEDS ORDERED: diphenhydrAMINE 50 MG/1 ML VIAL ONE (07:54)
[2018-05-22] MEDS ORDERED: ADENOSINE 90 MG/30 ML VIAL IV ONE (08:08)
[2018-05-22] MEDS ORDERED: ENOXAPARIN 60 MG/0.6 ML SYRINGE ONE (08:08)
[2018-05-22] MEDS ORDERED: ACETAMINOPHEN 325 MG TABLET PO PRN (08:30)
[2018-05-22] MEDS ORDERED: AMIODARONE 200 MG TABLET PO SCH (08:34)
[2018-05-22] MEDS ORDERED: PANTOPRAZOLE 40 MG TABLET PO SCH (09:00)
[2018-05-22] MEDS: ALLOPURINOL 300 MG TABLET PO SCH (10:35)
[2018-05-22] MEDS: LOSARTAN 25 MG TABLET PO SCH (10:35)
[2018-05-22] MEDS: ASPIRIN EC 81 MG TABLET PO SCH (10:36)
[2018-05-22] MEDS: CARVEDILOL 12.5 MG TABLET PO SCH (10:36)
[2018-05-22] MEDS: ATORVASTATIN 40 MG TABLET PO SCH (10:37)
[2018-05-22 14:14] VITALS: BP 117/77
== END 2018-05-22 16:57 | disposition home health service (06) | DRG 282 ==
LOC: N.ED 19:49 → N.EDINP 19:49 → N.CC 21:40 → N.TELEN 05-22 09:01
PROVIDERS: ADMIT Internal Medicine Cardiovascular Disease; ATTEND Internal Medicine Cardiovascular Disease

== ENCOUNTER 2018-06-02 01:42 | Inpatient (IN) ==
[2018-06-02] MEDS ORDERED: AMIODARONE 150 MG/3 ML VIAL ONE ×2 (02:01→02:29)
[2018-06-02] MEDS ORDERED: AMIODARONE 450 MG/9 ML VIAL IV ONE ×2 (02:05→18:25)
[2018-06-02] MEDS ORDERED: ONDANSETRON 4 MG/2 ML VIAL ONE (02:06)
[2018-06-02] MEDS ORDERED: METOPROLOL TARTRATE 5 MG/5 ML VIAL IV ONE (02:10)
[2018-06-02] MEDS ORDERED: METOPROLOL TARTRATE 5 MG/5 ML VIAL IV STA (02:17)
[2018-06-02] MEDS ORDERED: ONDANSETRON 4 MG/2 ML VIAL IV STA (02:17)
[2018-06-02] MEDS ORDERED: SODIUM CHLORIDE 0.9% 1,000 ML IV STA (02:17)
[2018-06-02] MEDS ORDERED: AMIODARONE INJ 150 MG in DEXTROSE 5% 100 ML IV ONE ×2 (02:18→02:58)
[2018-06-02 02:30] LABS: Basophils % 0.4 % (0.0-0.8); Eosinophils # 0.1 10*3/uL (0.0-0.87); Eosinophils % 0.7 % (0.00-10.9); Hematocrit 46.1 VOL% (42.0-52.0); Hemoglobin 14.3 GM/DL (14.0-18.0); Immature Granulocytes % 0.3 %; Immature Granulocytes Absolute 0.03 #; Lymphocytes # 2.2 10*3/uL (1.4-4.0); Lymphocytes % 21.4 % (21.2-54.2); Mean Corpuscular Hemoglobin 26 PG (27-34); Mean Corpuscular Volume 85.1 FL (87-102); Mean Platelet Volume 10.6 FL (9.6-12.0); Monocytes # 1.2 10*3/uL (0.11-0.8); Monocytes % 12.1 % (1.7-12.7); Neutrophils # 6.7 10*3/uL (1.4-7.4); Neutrophils % 65.1 % (38.7-73.9); Platelet Count 384 T/CUMM (130-400); Red Blood Count 5.42 MC/CUMM (3.8-5.5); Red Cell Distribution Width 18.5 % (9.3-17.3); White Blood Count 10.2 T/CUMM (4-12)
[2018-06-02] MEDS ORDERED: AMIODARONE INJ 450 MG in DEXTROSE 5% 241 ML IV SCH ×3 (02:30→23:55)
[2018-06-02 02:35] LABS: PT Patient Result 10.7 SECS
[2018-06-02 02:46] LABS: Albumin 3.9 G/DL (3.4-5.0); Bilirubin,Total 0.4 MG/DL (0.2-1.0); Calcium 9.8 MG/DL (8.5-10.1); Osmolality,Calculated 286.3 MOS/KG (273-304); Potassium 4.3 MMOL/L (3.5-5.1); Total Protein 7.5 G/DL (6.4-8.3)
[2018-06-02] MEDS ORDERED: MAGNESIUM SULF RIDER 4 GM in PREMIX 1 EACH IV PRN (03:54)
[2018-06-02] MEDS ORDERED: MAGNESIUM SULF RIDER 2 GM in PREMIX 1 EACH IV PRN (03:54)
[2018-06-02 04:27] LABS: Basophils % 0.4 % (0.0-0.8); Eosinophils # 0.1 10*3/uL (0.0-0.87); Eosinophils % 0.8 % (0.00-10.9); Hematocrit 40.9 VOL% (42.0-52.0); Immature Granulocytes % 0.6 %; Immature Granulocytes Absolute 0.05 #; Lymphocytes # 1.4 10*3/uL (1.4-4.0); Mean Corpuscular HGB Conc 31.8 GM/DL (32-36); Mean Corpuscular Hemoglobin 27 PG (27-34); Mean Corpuscular Volume 84.3 FL (87-102); Monocytes # 0.8 10*3/uL (0.11-0.8); Neutrophils # 5.9 10*3/uL (1.4-7.4); Neutrophils % 71.2 % (38.7-73.9); Platelet Count 303 T/CUMM (130-400); Red Blood Count 4.85 MC/CUMM (3.8-5.5); Red Cell Distribution Width 17.6 % (9.3-17.3); White Blood Count 8.3 T/CUMM (4-12)
[2018-06-02 04:51] LABS: Albumin 3.2 G/DL (3.4-5.0); Bilirubin,Total 0.4 MG/DL (0.2-1.0); Calcium 8.9 MG/DL (8.5-10.1); Osmolality,Calculated 288.1 MOS/KG (273-304); Potassium 3.9 MMOL/L (3.5-5.1); Total Protein 6.3 G/DL (6.4-8.3)
[2018-06-02 04:52] LABS: Troponin I 0.032 NG/ML (0.00-0.045)
[2018-06-02] MEDS: SODIUM CHLORIDE 0.9% 1,000 ML IV SCH ×3 (05:59→22:00)
[2018-06-02] MEDS ORDERED: APIXABAN 2.5 MG TABLET PO SCH (09:00)
[2018-06-02] MEDS: CARVEDILOL 12.5 MG TABLET PO SCH (09:31)
[2018-06-02] MEDS: LOSARTAN 25 MG TABLET PO SCH (09:31)
[2018-06-02] MEDS: ALLOPURINOL 300 MG TABLET PO SCH (09:31)
[2018-06-02] MEDS: ASPIRIN EC 81 MG TABLET PO SCH (09:31)
[2018-06-02] MEDS: AMIODARONE 200 MG TABLET PO SCH ×2 (09:31→19:20)
[2018-06-02 10:01] LABS: Troponin I 0.095 NG/ML (0.00-0.045)
[2018-06-02 10:20] LABS: Troponin I 0.094 NG/ML (0.00-0.045)
[2018-06-02] MEDS: AMIODARONE INJ 450 MG in DEXTROSE 5% 241 ML IV SCH (18:35)
[2018-06-02] MEDS: APIXABAN 5 MG TABLET PO SCH (19:20)
[2018-06-02] MEDS: ATORVASTATIN 80 MG TABLET PO SCH (20:17)
[2018-06-03] MEDS: SODIUM CHLORIDE 0.9% 1,000 ML IV SCH (06:03)
[2018-06-03] MEDS: CARVEDILOL 12.5 MG TABLET PO SCH (08:52)
[2018-06-03] MEDS: ASPIRIN EC 81 MG TABLET PO SCH (08:52)
[2018-06-03] MEDS: AMIODARONE 200 MG TABLET PO SCH ×2 (08:52→21:30)
[2018-06-03] MEDS: ALLOPURINOL 300 MG TABLET PO SCH (08:52)
[2018-06-03] MEDS: LOSARTAN 25 MG TABLET PO SCH (08:52)
[2018-06-03] MEDS: APIXABAN 5 MG TABLET PO SCH ×2 (08:52→21:29)
[2018-06-03 11:19] LABS: Calcium 8.1 MG/DL (8.5-10.1); Osmolality,Calculated 283.1 MOS/KG (273-304)
[2018-06-03] MEDS: ATORVASTATIN 80 MG TABLET PO SCH (21:30)
[2018-06-04] MEDS: AMIODARONE INJ 450 MG in DEXTROSE 5% 241 ML IV SCH ×2 (00:04→15:23)
[2018-06-04] MEDS ORDERED: AMIODARONE 450 MG/9 ML VIAL IV ONE (00:04)
[2018-06-04] MEDS ORDERED: AMIODARONE INJ 150 MG in DEXTROSE 5% 100 ML IV ONE (00:41)
[2018-06-04] MEDS ORDERED: MORPHINE 4 MG/1 ML VIAL IM PRN (00:42)
[2018-06-04 04:34] LABS: Calcium 8.5 MG/DL (8.5-10.1); Osmolality,Calculated 280.3 MOS/KG (273-304); Potassium 3.7 MMOL/L (3.5-5.1)
[2018-06-04] MEDS: ASPIRIN EC 81 MG TABLET PO SCH (09:13)
[2018-06-04] MEDS: CARVEDILOL 12.5 MG TABLET PO SCH (09:13)
[2018-06-04] MEDS: APIXABAN 5 MG TABLET PO SCH (09:13)
[2018-06-04] MEDS: LOSARTAN 25 MG TABLET PO SCH (09:13)
[2018-06-04] MEDS: ALLOPURINOL 300 MG TABLET PO SCH (09:13)
[2018-06-04] MEDS: AMIODARONE 200 MG TABLET PO SCH (09:13)
[2018-06-04] MEDS ORDERED: LIDOCAINE DRIP IV ONE (09:44)
[2018-06-04] MEDS: LIDOCAINE DRIP 2,000 MG/250 ML PREMIX IV SCH (09:56)
[2018-06-04] MEDS ORDERED: ceFAZolin 1,000 MG VIAL IRRIG ONE (14:45)
[2018-06-04] MEDS ORDERED: ceFAZolin 1,000 MG in SYRINGE 1 EACH IV ONE (14:45)
[2018-06-04] MEDS: FUROSEMIDE 40 MG TABLET PO SCH (15:26)
[2018-06-04] MEDS: ATORVASTATIN 80 MG TABLET PO SCH (21:53)
[2018-06-04] MEDS ORDERED: hydrALAZINE 20 MG/1 ML VIAL IV SCH (22:00)
[2018-06-05] MEDS ORDERED: NITROGLYCERIN 2% OINT 1 INCH/GM PACK TOP SCH
[2018-06-05] MEDS ORDERED: NITROGLYCERIN 2% OINT 1 INCH/GM PACK TOP PRN (02:26)
[2018-06-05] MEDS ORDERED: hydrALAZINE 20 MG/1 ML VIAL IV PRN (02:26)
[2018-06-05 02:31] LABS: Basophils % 0.3 % (0.0-0.8); Eosinophils # 0.1 10*3/uL (0.0-0.87); Eosinophils % 1.5 % (0.00-10.9); Hematocrit 42.3 VOL% (42.0-52.0); Hemoglobin 13.4 GM/DL (14.0-18.0); Immature Granulocytes % 0.5 %; Immature Granulocytes Absolute 0.04 #; Lymphocytes # 1.8 10*3/uL (1.4-4.0); Lymphocytes % 20.7 % (21.2-54.2); Mean Corpuscular HGB Conc 31.7 GM/DL (32-36); Mean Corpuscular Hemoglobin 27 PG (27-34); Mean Corpuscular Volume 83.6 FL (87-102); Mean Platelet Volume 10.6 FL (9.6-12.0); Monocytes # 0.7 10*3/uL (0.11-0.8); Monocytes % 7.9 % (1.7-12.7); Neutrophils # 6.1 10*3/uL (1.4-7.4); Neutrophils % 69.1 % (38.7-73.9); Platelet Count 318 T/CUMM (130-400); Red Blood Count 5.06 MC/CUMM (3.8-5.5); Red Cell Distribution Width 18.2 % (9.3-17.3); White Blood Count 8.9 T/CUMM (4-12)
[2018-06-05 02:50] LABS: Calcium 8.7 MG/DL (8.5-10.1); Osmolality,Calculated 281.3 MOS/KG (273-304); Potassium 3.6 MMOL/L (3.5-5.1)
[2018-06-05] MEDS ORDERED: ceFAZolin 1,000 MG in SYRINGE 1 EACH IV ONE (06:00)
[2018-06-05] MEDS ORDERED: ceFAZolin 1,000 MG VIAL IRRIG ONE (06:00)
[2018-06-05] MEDS ORDERED: LIDOCAINE 1% 20 ML VIAL ONE ×2 (09:48→10:37)
[2018-06-05] MEDS ORDERED: HEPARIN/NACL 0.9% 2 UNITS/ML 500 ML IV ONE ×2 (09:50→10:37)
[2018-06-05] MEDS ORDERED: ceFAZolin 1,000 MG VIAL ONE (10:36)
[2018-06-05] MEDS ORDERED: TISSUE ADHESIVE 1 EACH APPLICATOR TOP ONE (10:37)
[2018-06-05] MEDS ORDERED: oxyCODONE/ACETAMINOPHEN 5-325 MG TABLET PO PRN (12:09)
[2018-06-05] MEDS ORDERED: ePHEDrine 50 MG/ML AMP ONE (12:59)
[2018-06-05] MEDS ORDERED: MIDAZOLAM 2 MG/2 ML VIAL ONE (13:01)
[2018-06-05] MEDS ORDERED: fentaNYL 100 MCG/2 ML VIAL ONE (13:02)
[2018-06-05] MEDS: AMIODARONE INJ 450 MG in DEXTROSE 5% 241 ML IV SCH (13:05)
[2018-06-05] MEDS ORDERED: PROPOFOL 200 MG/20 ML VIAL IV ONE (13:06)
[2018-06-05] MEDS ORDERED: PHENYLEPHRINE 1 MG/10 ML SYRINGE IV ONE (13:06)
[2018-06-05] MEDS ORDERED: ONDANSETRON 4 MG/2 ML VIAL ONE (13:06)
[2018-06-05] MEDS ORDERED: SEVOFLURANE 1 UNIT/15 MINUTE INH ONE (13:06)
[2018-06-05] MEDS ORDERED: LACTATED RINGERS 1,000 ML IV ONE (13:06)
[2018-06-05] MEDS ORDERED: ETOMIDATE 40 MG/20 ML VIAL IV ONE (13:06)
[2018-06-05] MEDS ORDERED: ROCURONIUM 100 MG/10 ML VIAL IV ONE (13:06)
[2018-06-05] MEDS: ASPIRIN EC 81 MG TABLET PO SCH (13:19)
[2018-06-05] MEDS: ALLOPURINOL 300 MG TABLET PO SCH (13:19)
[2018-06-05] MEDS: FUROSEMIDE 40 MG TABLET PO SCH (13:20)
[2018-06-05] MEDS: CARVEDILOL 12.5 MG TABLET PO SCH (13:20)
[2018-06-05] MEDS: ISOSORBIDE MONONITRATE 30 MG TABLET PO SCH (13:20)
[2018-06-05] MEDS ORDERED: POTASSIUM CHLORIDE 20 MEQ TABLET PO ONE (13:23)
[2018-06-05] MEDS ORDERED: SUGAMMADEX 200 MG/2 ML VIAL IV ONE (13:28)
[2018-06-05 15:31] LABS: Apearance,Urine CLEAR (Clear); Bilirubin,Urine Negative (Negative); Blood, Urine Moderate mg/dL (Negative); Glucose,Urine (UA) Negative (Negative); Hyaline Casts,Urine 1 /LPF (0-3); Ketones,Urine Negative (Negative); Mucus,Urine Occasional /LPF (Occasional); Nitrite,Urine Negative (Negative); Protein,Urine Negative; RBC,Urine 16 /HPF (0-4); Urine Color Yellow (Yellow); Urine Specific Gravity 1.012 (1.001-1.035); Urine Urobilinogen < 2.0 EU/DL (0.2-1.0); WBC,Urine 1 /HPF (0-6)
[2018-06-05] MEDS: LOSARTAN 25 MG TABLET PO SCH (15:35)
[2018-06-05] MEDS: FUROSEMIDE 40 MG/4 ML VIAL IV SCH (16:55)
[2018-06-05] MEDS ORDERED: diphenhydrAMINE CAP 25 MG CAPSULE PO PRN (17:52)
[2018-06-05] MEDS: ATORVASTATIN 80 MG TABLET PO SCH (22:05)
[2018-06-06] MEDS: LIDOCAINE DRIP 2,000 MG/250 ML PREMIX IV SCH ×2 (01:34→16:22)
[2018-06-06] MEDS ORDERED: AMIODARONE 150 MG/3 ML VIAL ONE (04:37)
[2018-06-06] MEDS: ONDANSETRON 4 MG/2 ML VIAL IV PRN ×2 (04:50→09:06)
[2018-06-06] MEDS: AMIODARONE INJ 450 MG in DEXTROSE 5% 241 ML IV SCH ×3 (04:58→21:54)
[2018-06-06 04:59] LABS: Basophils % 0.3 % (0.0-0.8); Eosinophils # 0.1 10*3/uL (0.0-0.87); Eosinophils % 0.9 % (0.00-10.9); Hematocrit 43.2 VOL% (42.0-52.0); Hemoglobin 13.5 GM/DL (14.0-18.0); Immature Granulocytes % 0.4 %; Immature Granulocytes Absolute 0.06 #; Lymphocytes # 3.2 10*3/uL (1.4-4.0); Lymphocytes % 22.7 % (21.2-54.2); Mean Corpuscular HGB Conc 31.3 GM/DL (32-36); Mean Corpuscular Hemoglobin 27 PG (27-34); Mean Corpuscular Volume 84.9 FL (87-102); Mean Platelet Volume 10.5 FL (9.6-12.0); Monocytes # 1.4 10*3/uL (0.11-0.8); Monocytes % 9.9 % (1.7-12.7); NRBC # 0.02 10*3/uL; Neutrophils # 9.1 10*3/uL (1.4-7.4); Neutrophils % 65.8 % (38.7-73.9); Platelet Count 335 T/CUMM (130-400); Red Blood Count 5.09 MC/CUMM (3.8-5.5); Red Cell Distribution Width 18.4 % (9.3-17.3); White Blood Count 13.9 T/CUMM (4-12)
[2018-06-06] MEDS ORDERED: AMIODARONE INJ 150 MG in DEXTROSE 5% 100 ML IV ONE (05:00)
[2018-06-06] MEDS ORDERED: AMIODARONE INJ 450 MG in DEXTROSE 5% 241 ML IV SCH (05:00)
[2018-06-06 05:01] LABS: Total Cells Counted 0
[2018-06-06 05:11] LABS: Calcium 8.7 MG/DL (8.5-10.1); Osmolality,Calculated 275.8 MOS/KG (273-304); Potassium 3.9 MMOL/L (3.5-5.1)
[2018-06-06] MEDS: POTASSIUM CHLORIDE 20 MEQ TABLET PO PRN (05:48)
[2018-06-06] MEDS: FUROSEMIDE 40 MG/4 ML VIAL IV SCH ×2 (08:41→16:17)
[2018-06-06] MEDS: ISOSORBIDE MONONITRATE 30 MG TABLET PO SCH (08:45)
[2018-06-06] MEDS: ASPIRIN EC 81 MG TABLET PO SCH (08:45)
[2018-06-06] MEDS: CARVEDILOL 12.5 MG TABLET PO SCH (08:46)
[2018-06-06] MEDS: ALLOPURINOL 300 MG TABLET PO SCH (08:46)
[2018-06-06] MEDS: LOSARTAN 25 MG TABLET PO SCH (08:46)
[2018-06-06] MEDS ORDERED: CLORAZEPATE 7.5 MG TABLET PO PRN (11:22)
[2018-06-06] MEDS: ATORVASTATIN 80 MG TABLET PO SCH (22:15)
[2018-06-07] MEDS ORDERED: INFLUENZA VIRUS VACCINE 0.5 ML SYRINGE IM ONE (00:01)
[2018-06-07 03:44] LABS: Basophils % 0.2 % (0.0-0.8); Eosinophils # 0.1 10*3/uL (0.0-0.87); Eosinophils % 1.1 % (0.00-10.9); Hematocrit 40.6 VOL% (42.0-52.0); Hemoglobin 12.9 GM/DL (14.0-18.0); Immature Granulocytes % 0.4 %; Immature Granulocytes Absolute 0.04 #; Lymphocytes # 1.4 10*3/uL (1.4-4.0); Lymphocytes % 15.6 % (21.2-54.2); Mean Corpuscular HGB Conc 31.8 GM/DL (32-36); Mean Corpuscular Hemoglobin 26 PG (27-34); Mean Corpuscular Volume 82.7 FL (87-102); Mean Platelet Volume 10.2 FL (9.6-12.0); Monocytes # 0.9 10*3/uL (0.11-0.8); Monocytes % 9.7 % (1.7-12.7); Neutrophils # 6.5 10*3/uL (1.4-7.4); Platelet Count 264 T/CUMM (130-400); Red Blood Count 4.91 MC/CUMM (3.8-5.5); Red Cell Distribution Width 17.8 % (9.3-17.3); White Blood Count 8.9 T/CUMM (4-12)
[2018-06-07 03:56] LABS: Calcium 8.8 MG/DL (8.5-10.1); Potassium 3.5 MMOL/L (3.5-5.1)
[2018-06-07] MEDS ORDERED: LIDOCAINE 1% 20 ML VIAL ONE (07:21)
[2018-06-07] MEDS ORDERED: HEPARIN/NACL 0.9% 2 UNITS/ML 1,500 ML IV ONE (07:21)
[2018-06-07] MEDS: FUROSEMIDE 40 MG/4 ML VIAL IV SCH ×2 (08:00→16:10)
[2018-06-07] MEDS ORDERED: ceFAZolin 1,000 MG VIAL ONE (08:12)
[2018-06-07] MEDS ORDERED: HEPARIN DRIP 25,000 UNITS/500 ML PREMIX IV ONE (08:30)
[2018-06-07] MEDS: LOSARTAN 25 MG TABLET PO SCH (09:00)
[2018-06-07] MEDS: ASPIRIN EC 81 MG TABLET PO SCH (09:00)
[2018-06-07] MEDS: ALLOPURINOL 300 MG TABLET PO SCH (09:00)
[2018-06-07] MEDS: ISOSORBIDE MONONITRATE 30 MG TABLET PO SCH (09:00)
[2018-06-07] MEDS: CARVEDILOL 12.5 MG TABLET PO SCH (09:00)
[2018-06-07] MEDS ORDERED: HEPARIN 5,000 UNIT/1 ML VIAL ONE (09:14)
[2018-06-07] MEDS: LIDOCAINE DRIP 2,000 MG/250 ML PREMIX IV SCH (10:00)
[2018-06-07] MEDS ORDERED: HEPARIN/NACL 0.9% 2 UNITS/ML 500 ML IV ONE ×3 (10:02→11:56)
[2018-06-07] MEDS: AMIODARONE INJ 450 MG in DEXTROSE 5% 241 ML IV SCH (12:00)
[2018-06-07] MEDS ORDERED: ISOPROTERENOL 1 MG/5 ML VIAL IV ONE (12:11)
[2018-06-07] MEDS ORDERED: ZALEPLON 5 MG CAPSULE PO PRN (12:40)
[2018-06-07] MEDS ORDERED: HEPARIN 10,000 UNIT/10 ML VIAL ONE (13:26)
[2018-06-07] MEDS ORDERED: PROPOFOL 200 MG/20 ML VIAL IV ONE (13:26)
[2018-06-07] MEDS ORDERED: SEVOFLURANE 1 UNIT/15 MINUTE INH ONE (13:26)
[2018-06-07] MEDS ORDERED: PHENYLEPHRINE DRIP 20 MG/250 ML PREMIX IV ONE (13:26)
[2018-06-07] MEDS ORDERED: FUROSEMIDE 20 MG/2 ML VIAL ONE (13:27)
[2018-06-07] MEDS ORDERED: fentaNYL 100 MCG/2 ML VIAL ONE (13:27)
[2018-06-07] MEDS ORDERED: GLYCOPYRROLATE 0.4 MG/2 ML VIAL ONE (13:27)
[2018-06-07] MEDS ORDERED: ETOMIDATE 40 MG/20 ML VIAL IV ONE (13:27)
[2018-06-07] MEDS ORDERED: ONDANSETRON 4 MG/2 ML VIAL ONE (13:27)
[2018-06-07] MEDS ORDERED: DEXAMETHASONE 10 MG/1 ML VIAL ONE (13:27)
[2018-06-07] MEDS ORDERED: NEOSTIGMINE 10 MG/10 ML VIAL ONE (13:28)
[2018-06-07] MEDS ORDERED: ROCURONIUM 100 MG/10 ML VIAL IV ONE (13:28)
[2018-06-07] MEDS ORDERED: LACTATED RINGERS 1,000 ML IV ONE (13:28)
[2018-06-07] MEDS ORDERED: SODIUM CHLORIDE 0.9% 250 ML IV ONE (13:28)
[2018-06-07] MEDS ORDERED: PROTAMINE SULFATE 50 MG/5 ML VIAL IV ONE (13:28)
[2018-06-07] MEDS ORDERED: CARVEDILOL 6.25 MG TABLET PO STA (17:02)
[2018-06-07] MEDS ORDERED: MAGNESIUM SULF RIDER 2 GM in PREMIX 1 EACH IV ONE (17:03)
[2018-06-07 17:36] LABS: Osmolality,Calculated 276.8 MOS/KG (273-304); Potassium 3.8 MMOL/L (3.5-5.1)
[2018-06-07] MEDS: POTASSIUM CHLORIDE 20 MEQ TABLET PO PRN (18:30)
[2018-06-07] MEDS: CARVEDILOL 25 MG TABLET PO SCH (21:27)
[2018-06-07] MEDS: APIXABAN 5 MG TABLET PO SCH (21:27)
[2018-06-07] MEDS: ATORVASTATIN 80 MG TABLET PO SCH (21:27)
[2018-06-08 04:04] LABS: Basophils % 0.1 % (0.0-0.8); Hematocrit 38.4 VOL% (42.0-52.0); Hemoglobin 12.3 GM/DL (14.0-18.0); Immature Granulocytes % 0.5 %; Immature Granulocytes Absolute 0.07 #; Lymphocytes # 0.7 10*3/uL (1.4-4.0); Mean Corpuscular Hemoglobin 27 PG (27-34); Mean Corpuscular Volume 83.3 FL (87-102); Mean Platelet Volume 10.6 FL (9.6-12.0); Monocytes # 1.1 10*3/uL (0.11-0.8); Monocytes % 8.1 % (1.7-12.7); Neutrophils # 11.2 10*3/uL (1.4-7.4); Neutrophils % 86.3 % (38.7-73.9); Platelet Count 252 T/CUMM (130-400); Red Blood Count 4.61 MC/CUMM (3.8-5.5); Red Cell Distribution Width 18.3 % (9.3-17.3)
[2018-06-08 04:42] LABS: Calcium 8.6 MG/DL (8.5-10.1); Osmolality,Calculated 279.7 MOS/KG (273-304); Potassium 3.6 MMOL/L (3.5-5.1)
[2018-06-08] MEDS ORDERED: POTASSIUM CHLORIDE 20 MEQ TABLET PO ONE (07:35)
[2018-06-08] MEDS: FUROSEMIDE 40 MG/4 ML VIAL IV SCH (07:45)
[2018-06-08] MEDS ORDERED: ALUMINUM/MAGNES/SIMETH MAX STR 30 ML UDCUP PO PRN (08:36)
[2018-06-08] MEDS: ISOSORBIDE MONONITRATE 30 MG TABLET PO SCH (09:30)
[2018-06-08] MEDS: ALLOPURINOL 300 MG TABLET PO SCH (09:30)
[2018-06-08] MEDS: ASPIRIN EC 81 MG TABLET PO SCH (09:30)
[2018-06-08] MEDS: LOSARTAN 25 MG TABLET PO SCH (09:30)
[2018-06-08] MEDS: AMIODARONE 200 MG TABLET PO SCH ×2 (09:30→21:53)
[2018-06-08] MEDS: CARVEDILOL 25 MG TABLET PO SCH ×2 (09:30→20:42)
[2018-06-08] MEDS: APIXABAN 5 MG TABLET PO SCH ×2 (09:30→21:53)
[2018-06-08] MEDS: ONDANSETRON 4 MG/2 ML VIAL IV PRN (11:15)
[2018-06-08] MEDS ORDERED: SODIUM CHLORIDE 0.9% 500 ML IV ONE (14:25)
[2018-06-08] MEDS: ATORVASTATIN 80 MG TABLET PO SCH (21:53)
[2018-06-09 05:24] LABS: Basophils % 0.2 % (0.0-0.8); Eosinophils # 0.1 10*3/uL (0.0-0.87); Eosinophils % 0.6 % (0.00-10.9); Hematocrit 35.7 VOL% (42.0-52.0); Hemoglobin 11.2 GM/DL (14.0-18.0); Immature Granulocytes % 0.5 %; Immature Granulocytes Absolute 0.04 #; Lymphocytes # 0.9 10*3/uL (1.4-4.0); Lymphocytes % 10.8 % (21.2-54.2); Mean Corpuscular HGB Conc 31.4 GM/DL (32-36); Mean Corpuscular Hemoglobin 27 PG (27-34); Mean Corpuscular Volume 86.2 FL (87-102); Mean Platelet Volume 11.1 FL (9.6-12.0); Monocytes # 0.8 10*3/uL (0.11-0.8); Monocytes % 9.6 % (1.7-12.7); Neutrophils # 6.7 10*3/uL (1.4-7.4); Neutrophils % 78.3 % (38.7-73.9); Platelet Count 223 T/CUMM (130-400); Red Blood Count 4.14 MC/CUMM (3.8-5.5); Red Cell Distribution Width 18.3 % (9.3-17.3); White Blood Count 8.5 T/CUMM (4-12)
[2018-06-09 06:01] LABS: Calcium 8.4 MG/DL (8.5-10.1); Osmolality,Calculated 284.4 MOS/KG (273-304); Potassium 3.9 MMOL/L (3.5-5.1)
[2018-06-09] MEDS ORDERED: POTASSIUM CHLORIDE 20 MEQ TABLET PO ONE (07:16)
[2018-06-09] MEDS: CARVEDILOL 25 MG TABLET PO SCH ×2 (08:17→20:49)
[2018-06-09] MEDS: LOSARTAN 25 MG TABLET PO SCH (08:17)
[2018-06-09] MEDS: FUROSEMIDE 40 MG/4 ML VIAL IV SCH (08:17)
[2018-06-09] MEDS: APIXABAN 5 MG TABLET PO SCH ×2 (08:17→20:49)
[2018-06-09] MEDS: ISOSORBIDE MONONITRATE 30 MG TABLET PO SCH (08:17)
[2018-06-09] MEDS: ASPIRIN EC 81 MG TABLET PO SCH (08:17)
[2018-06-09] MEDS: ALLOPURINOL 300 MG TABLET PO SCH (08:17)
[2018-06-09] MEDS: AMIODARONE 200 MG TABLET PO SCH (08:17)
[2018-06-09] MEDS: ATORVASTATIN 80 MG TABLET PO SCH (20:49)
[2018-06-10 06:02] LABS: Basophils % 0.2 % (0.0-0.8); Eosinophils # 0.2 10*3/uL (0.0-0.87); Eosinophils % 1.8 % (0.00-10.9); Hematocrit 37.8 VOL% (42.0-52.0); Hemoglobin 11.7 GM/DL (14.0-18.0); Immature Granulocytes % 0.5 %; Immature Granulocytes Absolute 0.04 #; Lymphocytes # 1.3 10*3/uL (1.4-4.0); Lymphocytes % 16.1 % (21.2-54.2); Mean Corpuscular Hemoglobin 27 PG (27-34); Mean Corpuscular Volume 86.1 FL (87-102); Mean Platelet Volume 10.4 FL (9.6-12.0); Monocytes # 0.8 10*3/uL (0.11-0.8); Monocytes % 9.7 % (1.7-12.7); Neutrophils # 5.8 10*3/uL (1.4-7.4); Neutrophils % 71.7 % (38.7-73.9); Platelet Count 235 T/CUMM (130-400); Red Blood Count 4.39 MC/CUMM (3.8-5.5); Red Cell Distribution Width 17.8 % (9.3-17.3); White Blood Count 8.2 T/CUMM (4-12)
[2018-06-10 06:24] LABS: Calcium 9.1 MG/DL (8.5-10.1); Osmolality,Calculated 280.5 MOS/KG (273-304); Potassium 4.3 MMOL/L (3.5-5.1)
[2018-06-10] MEDS: CARVEDILOL 25 MG TABLET PO SCH ×2 (08:33→20:47)
[2018-06-10] MEDS: APIXABAN 5 MG TABLET PO SCH ×2 (08:33→20:47)
[2018-06-10] MEDS: ISOSORBIDE MONONITRATE 30 MG TABLET PO SCH (08:33)
[2018-06-10] MEDS: LOSARTAN 25 MG TABLET PO SCH (08:33)
[2018-06-10] MEDS: ASPIRIN EC 81 MG TABLET PO SCH (08:33)
[2018-06-10] MEDS: ALLOPURINOL 300 MG TABLET PO SCH (08:33)
[2018-06-10] MEDS: AMIODARONE 200 MG TABLET PO SCH (08:34)
[2018-06-10] MEDS: FUROSEMIDE 40 MG TABLET PO SCH (08:34)
[2018-06-10] MEDS ORDERED: FUROSEMIDE 40 MG TABLET PO SCH (09:00)
[2018-06-10] MEDS: ATORVASTATIN 80 MG TABLET PO SCH (20:47)
[2018-06-11 05:33] LABS: Basophils % 0.3 % (0.0-0.8); Eosinophils # 0.2 10*3/uL (0.0-0.87); Eosinophils % 2.8 % (0.00-10.9); Hematocrit 35.7 VOL% (42.0-52.0); Hemoglobin 11.3 GM/DL (14.0-18.0); Immature Granulocytes % 0.6 %; Immature Granulocytes Absolute 0.04 #; Lymphocytes # 1.4 10*3/uL (1.4-4.0); Lymphocytes % 19.7 % (21.2-54.2); Mean Corpuscular HGB Conc 31.7 GM/DL (32-36); Mean Corpuscular Hemoglobin 27 PG (27-34); Mean Corpuscular Volume 85.2 FL (87-102); Mean Platelet Volume 10.7 FL (9.6-12.0); Monocytes # 0.7 10*3/uL (0.11-0.8); Monocytes % 9.8 % (1.7-12.7); Neutrophils # 4.8 10*3/uL (1.4-7.4); Neutrophils % 66.8 % (38.7-73.9); Platelet Count 224 T/CUMM (130-400); Red Blood Count 4.19 MC/CUMM (3.8-5.5); Red Cell Distribution Width 17.4 % (9.3-17.3); White Blood Count 7.2 T/CUMM (4-12)
[2018-06-11 05:48] LABS: Calcium 9.2 MG/DL (8.5-10.1); Osmolality,Calculated 278.5 MOS/KG (273-304)
[2018-06-11 05:58] LABS: Albumin 2.8 G/DL (3.4-5.0); Bilirubin,Total 0.4 MG/DL (0.2-1.0); Osmolality,Calculated 277.7 MOS/KG (273-304); Potassium 3.9 MMOL/L (3.5-5.1); Thyroid Stimulating Hormone 2.4 uIU/ml (0.358-3.74); Total Protein 6.4 G/DL (6.4-8.3)
[2018-06-11] MEDS: ALLOPURINOL 300 MG TABLET PO SCH (08:52)
[2018-06-11] MEDS: ASPIRIN EC 81 MG TABLET PO SCH (08:52)
[2018-06-11] MEDS: APIXABAN 5 MG TABLET PO SCH ×2 (08:53→21:18)
[2018-06-11] MEDS: AMIODARONE 200 MG TABLET PO SCH (08:53)
[2018-06-11] MEDS: CARVEDILOL 25 MG TABLET PO SCH ×2 (08:53→21:18)
[2018-06-11] MEDS: ISOSORBIDE MONONITRATE 30 MG TABLET PO SCH (08:53)
[2018-06-11] MEDS: LOSARTAN 25 MG TABLET PO SCH (08:53)
[2018-06-11] MEDS: FUROSEMIDE 40 MG TABLET PO SCH (08:53)
[2018-06-11] MEDS: ATORVASTATIN 80 MG TABLET PO SCH (21:18)
[2018-06-12 05:46] LABS: Basophils % 0.3 % (0.0-0.8); Eosinophils # 0.2 10*3/uL (0.0-0.87); Eosinophils % 2.8 % (0.00-10.9); Hematocrit 36.9 VOL% (42.0-52.0); Hemoglobin 11.7 GM/DL (14.0-18.0); Immature Granulocytes % 0.6 %; Immature Granulocytes Absolute 0.04 #; Lymphocytes # 1.5 10*3/uL (1.4-4.0); Lymphocytes % 21.8 % (21.2-54.2); Mean Corpuscular HGB Conc 31.7 GM/DL (32-36); Mean Corpuscular Hemoglobin 27 PG (27-34); Mean Corpuscular Volume 84.2 FL (87-102); Mean Platelet Volume 10.4 FL (9.6-12.0); Monocytes # 0.7 10*3/uL (0.11-0.8); Monocytes % 9.2 % (1.7-12.7); Neutrophils # 4.6 10*3/uL (1.4-7.4); Neutrophils % 65.3 % (38.7-73.9); Platelet Count 255 T/CUMM (130-400); Red Blood Count 4.38 MC/CUMM (3.8-5.5)
[2018-06-12 06:03] LABS: Calcium 9.3 MG/DL (8.5-10.1); Osmolality,Calculated 275.7 MOS/KG (273-304)
[2018-06-12] MEDS ORDERED: FUROSEMIDE 40 MG TABLET PO SCH (07:57)
[2018-06-12 08:05] VITALS: BP 134/81
[2018-06-12] MEDS: AMIODARONE 200 MG TABLET PO SCH (08:28)
[2018-06-12] MEDS: CARVEDILOL 25 MG TABLET PO SCH (08:29)
[2018-06-12] MEDS: ASPIRIN EC 81 MG TABLET PO SCH (08:29)
[2018-06-12] MEDS: LOSARTAN 25 MG TABLET PO SCH (08:29)
[2018-06-12] MEDS: APIXABAN 5 MG TABLET PO SCH (08:29)
[2018-06-12] MEDS: ISOSORBIDE MONONITRATE 30 MG TABLET PO SCH (08:29)
[2018-06-12] MEDS: ALLOPURINOL 300 MG TABLET PO SCH (08:29)
[2018-06-12] MEDS ORDERED: POTASSIUM CHLORIDE 20 MEQ TABLET PO SCH (09:00)
[2018-06-12] MEDS ORDERED: MAGNESIUM OXIDE 400 MG TABLET PO SCH (09:00)
[2018-06-12] MEDS ORDERED: cephALEXin 500 MG CAPSULE PO SCH (09:00)
[2018-06-12 10:08] LABS: Apearance,Urine CLEAR (Clear); Bilirubin,Urine Negative (Negative); Blood, Urine Moderate mg/dL (Negative); Glucose,Urine (UA) Negative (Negative); Hyaline Casts,Urine 3 /LPF (0-3); Ketones,Urine Negative (Negative); Mucus,Urine Occasional /LPF (Occasional); Nitrite,Urine Negative (Negative); Protein,Urine Negative; RBC,Urine 76 /HPF (0-4); Squamous Epithelial Cell,Urine Occasional /HPF (0-10); Urine Color Yellow (Yellow); Urine Specific Gravity 1.012 (1.001-1.035); Urine Urobilinogen < 2.0 EU/DL (0.2-1.0); WBC,Urine 2 /HPF (0-6)
== END 2018-06-12 11:47 | disposition home health service (06) | DRG 227 ==
LOC: N.EDINP 01:42 → N.ED 01:42 → N.TELEN 04:13 → N.ICU 06-04 09:30 → N.TELEN 06-09 12:58
PROVIDERS: ADMIT Internal Medicine Cardiovascular Disease; ATTEND Internal Medicine Cardiovascular Disease
PROC: CLEPAVT (ICD-10-PCS; 2018-06-07 07:45)